=== PATIENT | female | born 1965 | race Caucasian/White ===

== ENCOUNTER 2023-10-08 12:58 | Outpatient (AMB) | payer OTHER, SELFPAY ==
--- NOTE | 2023-10-08 13:06 | MHC.PC.OV ---
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 Intake Note: pt is here for physical exam and to establish care Investment Recovery Technician Required: No Allergies No Known Allergies Allergy (Verified 10/08/23 13:12) Medication List - Last Reconciled 10/08/23 by Sammie Rabago MD atorvastatin 20 mg PO DAILY fluoxetine 20 mg PO DAILY ipratropium bromide intranasal levothyroxine (Synthroid) 75 mcg PO DAILY lorazepam 0.5 mg PO DAILY Tobacco use date assessed: 10/08/23 Dental Screening Dental Screen Date: 10/08/23 Did you have a dental visit in the last 12 months?: Yes Did you have a dental problem in the last 6 months where you did not have access to dental care?: No Was dental information given to patient?: Patient has dentist HPI HPI Comments History of Present Illness Details The patient is a 57 year old female with a past medical history of hypothyroid, hyperlipidemia, anxiety, prediabetes, osteopenia & depression presenting for follow up CV: on lipitor daily. Has had increased exertional dyspnea. Thinks its because of weight gain but unsure Depression/Anxiety: Following with therapist but likely return to primary care. On prn ativan and fluoxetine Hypothyroid: stable on levothyroxine. MSK: h/o bilateral wrist hand pain, CMC joints. Saw ortho. GI: Follows with [facility] Preventive Colonoscopy 01/21/2021 Mammo ard [facility] Surgical History (Updated 10/08/23 @ 13:15 by Maxmio Peters CMA) No pertinent past surgical history Family History (Updated 10/08/23 @ 13:16 by Maximo Peters CMA) Mother Dementia Father Oral cancer Social History (Updated 10/08/23 @ 13:16 by Maximo Peters CMA) Housing: House Alcohol intake: current Alcohol intake frequency: a few times a week Alcohol type: wine Patient Tobacco Use Status: Never used Tobacco e-Cigarette/Vaping Use: Never Used service: No Cognitive needs: No Hearing needs: No Vision needs: Yes Questionnaire PHQ-9 Over the last 2 weeks, how often have you been bothered by any of the following problems? 1. Little interest or pleasure in doing things: not at all 2. Feeling down, depressed, or hopeless: not at all 3. Trouble falling or staying asleep, or sleeping too much: not at all 4. Feeling tired or having little energy: not at all 5. Poor appetite or overeating: several days 6. Feeling bad about yourself - or that you are a failure or have let yourself or your family down: several days 7. Trouble concentrating on things, such as reading the newspaper or watching television: not at all 8. Moving or speaking so slowly that other people could have noticed. Or the opposite - being so fidgety or restless that you have been moving around a lot more than usual: not at all 9. Thoughts that you would be better off or of hurting yourself in some way: not at all Total score: 2 Depression Screening Interpretation: Negative (neg) Depression Screening Done: Yes [id number] - PHQ-9 Billing: Yes Source: Developed by Drs. Armando Lazaro, Lynette Matias, Get Burroughs and colleagues, with an educational miguel from [employer]. Thrive Questionnaire Date Thrive assessed: 10/08/23 I am a: Patient What is your living situation today?: I have a steady place to live Within the past 12 months, did the food you bought not last and you didn't have the money to get more?: Never true Within the past 12 months, did you worry whether your food would run out before you got money to buy more?: Never true Do you have trouble paying for medicines?: No Do you have trouble getting transportation to medical appointments?: No Do you have trouble paying your heating and electricity bill?: No Do you have trouble taking care of your child, family member or friend?: No Do you have trouble with day-to-day activities such as bathing, preparing meals, shopping, managing finances, etc.?: No Are you currently unemployed and looking for a job?: No Are you interested in more education?: No Please select the resources that you would like help with: None Currently or been in a relationship where the following occur: no concerns reported THRIVE Score: 0 AUDIT C Alcohol Use Questionnaire (AUDIT-C) 1. How often do you have a drink containing alcohol?: 2-3 times a week 2. How many drinks containing alcohol do you have on a typical day when you are drinking?: 1 or 2 3. How often do you have six or more drinks on one occasion?: Never Total Score: 3 Score Reviewed/Action Taken: Yes ROSE-7 AMB Questionnaire ROSE-7 Date ROSE - 7 assessed: 10/08/23 Feeling nervous, anxious, or on edge: 2 = More than half the days Not being able to stop or control worryin = More than half the days Worrying too much about different things: 2 = More than half the days Trouble relaxin = More than half the days Being so restless that it is hard to sit still: 2 = More than half the days Becoming easily annoyed or irritable: 2 = More than half the days Feeling afraid as if something awful might happen: 2 = More than half the days Total ROSE-7 score (0-4 normal; 5-9 mild; 10-14 moderate; 15-21 severe): 14 Source: Developed by Drs. Armando Lazaro, Lynette Matias, Get Burroughs and colleagues, with an educational miguel from [employer]. ROSE-7 Assessment Billing ROSE-7 Assessment Tool: ROSE-7 Assessment 64204 Review of Systems Const Details: ROS CONSTITUTIONAL: Denies weight loss, fever and chills. HEENT: Denies changes in vision and hearing. RESPIRATORY: see HPI CV: see HPI GI: Denies abdominal pain, nausea, vomiting and diarrhea. : Denies dysuria and urinary frequency. MSK: Denies new myalgia and joint pain. SKIN: Denies rash and pruritus. NEUROLOGICAL: Denies headache PSYCHIATRIC: Denies recent changes in mood. Physical exam (Primary Care) Vital Signs: Last Vital Signs Pulse 81 10/08/23 13:10 BP 122/72 10/08/23 13:10 Pulse Ox 99 10/08/23 13:10 PHYSICAL EXAM: GENERAL: Alert and oriented x 3. NAD EYES: EOMI. Anicteric. HENT: Moist mucous membranes. No scleral icterus. No cervical lymphadenopathy. LUNGS: Clear to auscultation bilaterally. CARDIOVASCULAR: Regular rate and rhythm. No murmur. No JVD. ABDOMEN: Soft, non-tender +bs EXTREMITIES: No edema. Non-tender. SKIN: No rashes or lesions. Warm. NEUROLOGIC: No focal neurological deficits. CN II-XII grossly intact PSYCHIATRIC: Cooperative. Appropriate mood and affect BMI result Body Mass Index 30.2 Tobacco/Smoking Status: Tobacco use Status Tobacco use date assessed 10/08/23 10/08/23 13:19 Patient Tobacco Use Status Never used Tobacco 10/08/23 13:19 e-Cigarette/Vaping Use Never Used 10/08/23 13:19 PHQ-9: PHQ-9 Score PHQ-9: Total score 2 10/08/23 13:19 Depression Screening Interpretation: Negative (neg) Thrive Assessment: Date of Thrive Assessment Date Thrive assessed 10/08/23 10/08/23 13:19 Currently or been in a relationship where the following occur: no concerns reported Assessment and Plan Assessment & Plan (1) Anxiety: Comment: stable on prozac and prn lorazepam. 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 Efforts toward weight loss Code(s): R73.02 - Impaired glucose tolerance (oral) (5) Shortness of Breath: Code(s): R06.02 - Shortness of breath (6) Physical exam: Code(s): Z00.00 - Encounter for general adult medical examination without abnormal findings Plan: Discussed preventive measures for patients age Orders: Orders Complete Blood Count Auto Diff Today E03.9 - Hypothyroidism, unspecified, E78.5 - Hyperlipidemia, unspecified, F41.9 - Anxiety disorder, unspecified, R06.02 - Shortness of breath, R73.02 - Impaired glucose tolerance (oral), Z13.0 - Encounter for screening for diseases of the blood and blood-forming organs and certain disorders involving the immune mechanism Hemoglobin A1c Today E03.9 - Hypothyroidism, unspecified, E78.5 - Hyperlipidemia, unspecified, F41.9 - Anxiety disorder, unspecified, R06.02 - Shortness of breath, R73.02 - Impaired glucose tolerance (oral), Z13.0 - Encounter for screening for diseases of the blood and blood-forming organs and certain disorders involving the immune mechanism ECG 12 lead EKG Today R06.02 - Shortness of breath Comprehensive Met. Panel Today E03.9 - Hypothyroidism, unspecified, E78.5 - Hyperlipidemia, unspecified, F41.9 - Anxiety disorder, unspecified, R06.02 - Shortness of breath, R73.02 - Impaired glucose tolerance (oral), Z13.0 - Encounter for screening for diseases of the blood and blood-forming organs and certain disorders involving the immune mechanism Lipid Panel Today E03.9 - Hypothyroidism, unspecified, E78.5 - Hyperlipidemia, unspecified, F41.9 - Anxiety disorder, unspecified, R06.02 - Shortness of breath, R73.02 - Impaired glucose tolerance (oral), Z13.0 - Encounter for screening for diseases of the blood and blood-forming organs and certain disorders involving the immune mechanism TSH reflex Free T4 Today E03.9 - Hypothyroidism, unspecified, E78.5 - Hyperlipidemia, unspecified, F41.9 - Anxiety disorder, unspecified, R06.02 - Shortness of breath, R73.02 - Impaired glucose tolerance (oral), Z13.0 - Encounter for screening for diseases of the blood and blood-forming organs and certain disorders involving the immune mechanism CA stress test Today R06.09 - Other forms of dyspnea Medications: New lorazepam 0.5 mg PO DAILY 30 days 30 tabs 0RF Coding Level of Care Code Est Pt Prev Care 40-64y(55236) Diagnoses Anxiety F41.9 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
[2023-10-08 13:10] VITALS: BP 122/72; PULSE 81; O2SAT 99; BMI 30.2
== END 2023-10-08 14:05 | disposition home or self-care (01) ==
PROVIDERS: PCP Internal Medicine; Visit Provider Internal Medicine
DX: Z00.00 Encounter for general adult medical examination without abnormal findings (principal); R06.02 Shortness of breath; F41.9 Anxiety disorder, unspecified; E03.8 Other specified hypothyroidism; E06.3 Autoimmune thyroiditis; E78.2 Mixed hyperlipidemia; R73.02 Impaired glucose tolerance (oral)
CPT/HCPCS: 93000; 99396

== ENCOUNTER 2023-10-10 10:03 | Outpatient (REF) | payer OTHER, SELFPAY ==
[2023-10-10 11:14] LABS: MANUAL DIFF FLAG NO
[2023-10-10 11:22] LABS: Basophils Percent Auto 0.2 % (0-2); Eosinophils Absolute Auto 0.1 X10*3/uL (0.0-0.4); Eosinophils Percent Auto 1.6 % (0-4); Hematocrit 38.5 % (37.0-47.0); Hemoglobin 12.9 g/dl (12.0-16.0); Imm Gran Abs Auto 0.01 X10*3/uL (0.00-0.03); Imm Gran Pct Auto 0.2 % (0.0-0.4); Lymphocytes Absolute Auto 2.1 X10*3/uL (1.2-4.9); Lymphocytes Percent Auto 40.4 % (20-40); Mean Corpuscular HGB Conc 33.5 g/dl (31.0-35.0); Mean Corpuscular Hemoglobin 31.7 pg (27.0-33.0); Mean Corpuscular Volume 94.6 fL (80.0-98.0); Mean Platelet Volume 8.9 fL (9.4-12.3); Monocytes Absolute Auto 0.4 X10*3/uL (0.1-1.2); Monocytes Percent Auto 7.7 % (2-11); Neutrophils Absolute Auto 2.5 x10*3/uL (2.0-8.3); Neutrophils Percent Auto 49.9 % (45-73); Platelet Count 300 X10*3/uL (160-400); Red Blood Count 4.07 X10*6/uL (4.20-5.50); White Blood Count 5.1 X10*3/uL (4.8-10.8)
[2023-10-10 11:28] LABS: Estimated Average Glucose 114 mg/dL; Hemoglobin A1c % 5.6 % (<6.0)
[2023-10-10 11:46] LABS: Alanine Aminotransferase 33 U/L (0-31); Albumin Level 4.5 g/dL (3.5-5.0); Alkaline Phosphatase 76 U/L (39-117); Anion Gap 13 (12-20); Aspartate Amino Transferase 23 U/L (5-31); Bilirubin Total 0.5 mg/dL (0.0-1.0); Blood Urea Nitrogen 19 mg/dL (9-16); Calcium 9.7 mg/dL (8.4-10.2); Carbon Dioxide 26 mmol/L (22-29); Chloride 105 mmol/L (96-108); Cholesterol 166 mg/dL (<200); Estimated Glomerular Filt Rate > 60; Glucose Random 101 mg/dL (60-115); HDL Cholesterol 44 mg/dL (>40); LDL Cholesterol Calculated 102 mg/dL (<100); Potassium 4.1 mmol/L (3.3-5.1); Sodium 140 mmol/L (135-145); Total Protein 7.6 g/dL (6.5-8.0); Triglycerides 104 mg/dL (<150)
[2023-10-10 12:04] LABS: TSH reflex Free T4 1.23 uIU/mL (0.32-4.0)
== END 2023-10-10 10:04 | disposition home or self-care (01) ==
LOC: HO.WFDLDS 10:03
PROVIDERS: Visit Provider Internal Medicine
DX: E78.5 Hyperlipidemia, unspecified (principal); E03.9 Hypothyroidism, unspecified; F41.9 Anxiety disorder, unspecified; Z13.0 Encounter for screening for diseases of the blood and blood-forming organs and certain disorders involving the immune mechanism; R73.02 Impaired glucose tolerance (oral); R06.02 Shortness of breath
CPT/HCPCS: 36415; 80053; 80061; 83036; 84443; 85025

== ENCOUNTER → 2023-10-16 08:42 | Outpatient (REF) | payer OTHER, SELFPAY ==
--- NOTE | 2023-10-16 08:51 | CA_ITS ---
Acquisition Time: 2023-10-16 09:13:30 Total Exercise Time: 00:06:12 Test Indications: EXERTIONAL DYSPNEA Medications: Protocol: KATINA Max HR: 137 BPM 85% of Pred: 161 BPM Max BP: 142/072 mmHG Max Work Load: 7.2 METS Exercise stress test exercise 6 min 12 sec of Katina protocol achieving 86% with mild to moderate SOB, no chest discomfort, withgout arrhythmais, with normotensive response to exercise, without EKG changes. Breathing returned to normal to baseline. Lightheadedness improved. Test reviewed with Dr. Parks. Referred By: Sammie Rabago Overread By: Monie Danielle
== END ==
LOC: HO.CARD 08:42
PROVIDERS: PCP Internal Medicine; Visit Provider Internal Medicine
DX: R06.09 Other forms of dyspnea (principal)
CPT/HCPCS: 93017

== ENCOUNTER → 2023-10-16 08:51 | Outpatient (BNV) | payer OTHER, SELFPAY | PROVIDERS: PCP Internal Medicine; Visit Provider Nurse Practitioner | DX: R06.02 Shortness of breath (principal) | CPT/HCPCS: 93016; 93018 ==

== ENCOUNTER 2024-03-19 08:55 | Outpatient (REF) | payer OTHER, SELFPAY ==
[2024-03-19 11:31] LABS: MANUAL DIFF FLAG NO
[2024-03-19 11:34] LABS: Basophils Percent Auto 0.5 % (0-2); Eosinophils Absolute Auto 0.1 X10*3/uL (0.0-0.4); Eosinophils Percent Auto 2.5 % (0-4); Hematocrit 38.5 % (37.0-47.0); Hemoglobin 12.9 g/dl (12.0-16.0); Imm Gran Abs Auto 0.01 X10*3/uL (0.00-0.03); Imm Gran Pct Auto 0.2 % (0.0-0.4); Lymphocytes Absolute Auto 2.3 X10*3/uL (1.2-4.9); Lymphocytes Percent Auto 41.7 % (20-40); Mean Corpuscular HGB Conc 33.5 g/dl (31.0-35.0); Mean Corpuscular Hemoglobin 31.5 pg (27.0-33.0); Mean Corpuscular Volume 94.1 fL (80.0-98.0); Mean Platelet Volume 8.6 fL (9.4-12.3); Monocytes Absolute Auto 0.5 X10*3/uL (0.1-1.2); Monocytes Percent Auto 8.9 % (2-11); Neutrophils Absolute Auto 2.6 x10*3/uL (2.0-8.3); Neutrophils Percent Auto 46.2 % (45-73); Platelet Count 347 X10*3/uL (160-400); Red Blood Count 4.09 X10*6/uL (4.20-5.50); Red Cell Distribution Width 12.3 % (11.0-16.0); White Blood Count 5.6 X10*3/uL (4.8-10.8)
[2024-03-19 12:19] LABS: Estimated Average Glucose 117 mg/dL; Hemoglobin A1C 130.1138 umol/L; Hemoglobin A1c % 5.7 % (<6.0); Total Hemoglobin (HGBA1C) 3401.4343 umol/L
[2024-03-19 13:00] LABS: Alanine Aminotransferase 46 U/L (0-31); Albumin Level 4.5 g/dL (3.5-5.0); Alkaline Phosphatase 97 U/L (39-117); Anion Gap 17 (12-20); Aspartate Amino Transferase 35 U/L (5-31); Bilirubin Total 0.8 mg/dL (0.0-1.0); Blood Urea Nitrogen 19 mg/dL (9-16); Calcium 9.6 mg/dL (8.4-10.2); Carbon Dioxide 23 mmol/L (22-29); Chloride 103 mmol/L (96-108); Cholesterol 179 mg/dL (<200); Estimated Glomerular Filt Rate > 60; Glucose Random 101 mg/dL (60-115); HDL Cholesterol 49 mg/dL (>40); LDL Cholesterol Calculated 101 mg/dL (<100); Potassium 4.2 mmol/L (3.3-5.1); Sodium 139 mmol/L (135-145); Total Protein 7.7 g/dL (6.5-8.0); Triglycerides 146 mg/dL (<150)
[2024-03-19 13:26] LABS: TSH reflex Free T4 4.96 uIU/mL (0.32-4.0)
[2024-03-19 14:25] LABS: Free T4 (Free Thyroxine) 1.06 ng/dL (0.71-1.85)
== END 2024-03-19 08:56 | disposition home or self-care (01) ==
LOC: HO.WFDLDS 08:55
PROVIDERS: Visit Provider Internal Medicine
DX: R73.02 Impaired glucose tolerance (oral) (principal); E78.2 Mixed hyperlipidemia; E03.8 Other specified hypothyroidism; E06.3 Autoimmune thyroiditis; F32.A Depression, unspecified
CPT/HCPCS: 36415; 80053; 80061; 83036; 84439; 84443; 85025

== ENCOUNTER 2024-03-24 08:52 | Outpatient (AMB) | payer OTHER, SELFPAY ==
--- NOTE | 2024-03-24 09:01 | MHC.PC.OV ---
Vital Signs 03/24/24 09:03 Height 5 ft 3.5 in Weight 170 lb BMI 29.6 BP 132/70 Blood Pressure Location Rt brachial Position Sitting Respiration 13 Pulse 77 Pulse Source Pulse Oximeter Pulse Oximetry (%) 98 Oxygen Delivery Method Room Air Intake Visit Reasons: follow up anxiety Automatic Bow Maker Machine Tender Required: No Automatic Bow Maker Machine Tender Name: follow up on anxiety Allergies No Known Allergies Allergy (Verified 03/24/24 09:03) Tobacco use date assessed: 10/08/23 Dental Screening Dental Screen Date: 10/08/23 HPI HPI Comments History of Present Illness Details The patient is a 57 year old female with a past medical history of hypothyroid, hyperlipidemia, anxiety, prediabetes, osteopenia & depression presenting for follow up CV: on lipitor daily. Denies chest pain, shortness of breath Depression/Anxiety: On prn ativan and fluoxetine-40mg daily Hypothyroid: stable on levothyroxine. Recent TSH elevated. She has been tired on her her 75mcg dose MSK: h/o bilateral wrist hand pain, CMC joints. Saw ortho. Increased low back pain. Macromastia. Getting recurrent rash under the breast. She has been doing PT stretches at home for the low back GI: Follows with [facility] Preventive Colonoscopy 01/21/2021 Mammo utd ROS CONSTITUTIONAL: Denies weight loss, fever and chills. HEENT: Denies changes in vision and hearing. RESPIRATORY: Denies SOB and cough. CV: Denies palpitations and CP GI: Denies abdominal pain, nausea, vomiting and diarrhea. : Denies dysuria and urinary frequency. MSK: Denies new myalgia and joint pain. SKIN:breast rash NEUROLOGICAL: Denies headache PSYCHIATRIC: Denies recent changes in mood. PHYSICAL EXAM: GENERAL: Alert and oriented x 3. NAD EYES: EOMI. Anicteric. HENT: Moist mucous membranes. No scleral icterus. No cervical lymphadenopathy. LUNGS: Clear to auscultation bilaterally. CARDIOVASCULAR: Regular rate and rhythm. No murmur. No JVD. ABDOMEN: Soft, non-tender +bs EXTREMITIES: No edema. Non-tender. SKIN: tinea cruris NEUROLOGIC: No focal neurological deficits. CN II-XII grossly intact PSYCHIATRIC: Cooperative. Appropriate mood and affect [facility] Surgical History No pertinent past surgical history Family History Mother Dementia Father Oral cancer Social History Housing: House Alcohol intake: current Alcohol intake frequency: a few times a week Alcohol type: wine Patient Tobacco Use Status: Never used Tobacco e-Cigarette/Vaping Use: Never Used service: No Cognitive needs: No Hearing needs: No Vision needs: Yes Questionnaire PHQ-9 Over the last 2 weeks, how often have you been bothered by any of the following problems? 1. Little interest or pleasure in doing things: not at all 2. Feeling down, depressed, or hopeless: not at all 3. Trouble falling or staying asleep, or sleeping too much: not at all 4. Feeling tired or having little energy: not at all 5. Poor appetite or overeating: not at all 6. Feeling bad about yourself - or that you are a failure or have let yourself or your family down: not at all 7. Trouble concentrating on things, such as reading the newspaper or watching television: not at all 8. Moving or speaking so slowly that other people could have noticed. Or the opposite - being so fidgety or restless that you have been moving around a lot more than usual: not at all 9. Thoughts that you would be better off or of hurting yourself in some way: not at all Total score: 0 41568 - PHQ-9 Billing: Yes Source: Developed by Drs. Armando Lazaro, Lynette Matias, Get Burroughs and colleagues, with an educational miguel from [employer]. Thrive Questionnaire Date Thrive assessed: 03/24/24 I am a: Patient What is your living situation today?: I have a steady place to live Within the past 12 months, did the food you bought not last and you didn't have the money to get more?: Never true Within the past 12 months, did you worry whether your food would run out before you got money to buy more?: Never true Do you have trouble paying for medicines?: No Do you have trouble getting transportation to medical appointments?: No Do you have trouble paying your heating and electricity bill?: No Do you have trouble taking care of your child, family member or friend?: No Do you have trouble with day-to-day activities such as bathing, preparing meals, shopping, managing finances, etc.?: No Are you currently unemployed and looking for a job?: I choose not to answer this question Are you interested in more education?: No Please select the resources that you would like help with: None Currently or been in a relationship where the following occur: No concerns reported THRIVE Score: 0 AUDIT C Alcohol Use Questionnaire (AUDIT-C) 1. How often do you have a drink containing alcohol?: 2-3 times a week 2. How many drinks containing alcohol do you have on a typical day when you are drinking?: 1 or 2 3. How often do you have six or more drinks on one occasion?: Less than monthly Total Score: 4 ROSE-7 AMB Questionnaire ROSE-7 Date ROSE - 7 assessed: 03/24/24 Feeling nervous, anxious, or on edge: 1 = Several days Not being able to stop or control worryin = Several days Worrying too much about different things: 1 = Several days Trouble relaxin = Several days Being so restless that it is hard to sit still: 0 = Not at all Becoming easily annoyed or irritable: 0 = Not at all Feeling afraid as if something awful might happen: 0 = Not at all Total ROSE-7 score (0-4 normal; 5-9 mild; 10-14 moderate; 15-21 severe): 4 Source: Developed by Drs. Armando Lazaro, Lynette Matias, Get Burroughs and colleagues, with an educational miguel from [employer]. ROSE-7 Assessment Billing ROSE-7 Assessment Tool: ROSE-7 Assessment 03980 Physical exam (Primary Care) Vital Signs: Last Vital Signs Pulse 77 03/24/24 09:03 Resp 13 03/24/24 09:03 BP 132/70 03/24/24 09:03 Pulse Ox 98 03/24/24 09:03 Oxygen Delivery Method Room Air 03/24/24 09:03 BMI result Body Mass Index 29.6 Tobacco/Smoking Status: Tobacco use Status Tobacco use date assessed 10/08/23 03/24/24 09:05 Patient Tobacco Use Status Never used Tobacco 03/24/24 09:05 e-Cigarette/Vaping Use Never Used 03/24/24 09:05 PHQ-9: PHQ-9 Score PHQ-9: Total score 0 03/24/24 09:05 Thrive Assessment: Date of Thrive Assessment Date Thrive assessed 03/24/24 03/24/24 09:05 Currently or been in a relationship where the following occur: No concerns reported Coding Level of Care Code Est Pt Level 4 (21271) Complex EM visit Add On G2211 Diagnoses Anxiety F41.9 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 Sent refills. 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 Increase levothyroxine to 88mcg daily (3) Rash: Code(s): R21 - Rash and other nonspecific skin eruption Category: Medical Plan: Lotrisone sent She may be eligibile for breast reduction given back pain and recurrent rash. BMI is appropriate for referral Orders: Orders Varicella IgG Antibody Today Z01.84 - Encounter for antibody response examination Medications: New clotrimazole-betamethasone 1-0.05 % 1 appl topical BID 4 weeks 45 grams 3RF levothyroxine 88 mcg PO DAILY 90 tabs 3RF fluoxetine 40 mg PO DAILY 90 caps 3RF Changed From lorazepam 0.5 mg PO DAILY 30 days 30 tabs 0RF To lorazepam 0.5 mg PO DAILY 90 days 90 tabs 3RF Discontinued levothyroxine (Synthroid) Discontinued Reason: Doctor's Order 75 mcg PO DAILY 90 tabs 3RF
[2024-03-24 09:03] VITALS: BP 132/70; PULSE 77; RESP 13; O2SAT 98; BMI 29.6
== END 2024-03-24 09:28 | disposition home or self-care (01) ==
LOC: HO.HMCFM 08:53
PROVIDERS: PCP Internal Medicine; Visit Provider Internal Medicine
DX: F41.9 Anxiety disorder, unspecified (principal); E03.8 Other specified hypothyroidism; E06.3 Autoimmune thyroiditis; R21 Rash and other nonspecific skin eruption

== ENCOUNTER → 2024-03-24 08:52 | Outpatient (BNVA) | payer OTHER, SELFPAY | PROVIDERS: PCP Internal Medicine; Visit Provider Internal Medicine | DX: F41.9 Anxiety disorder, unspecified (principal); E03.8 Other specified hypothyroidism; E06.3 Autoimmune thyroiditis; R21 Rash and other nonspecific skin eruption; Z79.899 Other long term (current) drug therapy | CPT/HCPCS: 96127 ==

== ENCOUNTER 2024-03-24 09:31 | Outpatient (REF) | payer OTHER, SELFPAY | END 2024-03-24 09:32 | disposition home or self-care (01) | LOC: HO.WFDLDS 09:31 | PROVIDERS: Visit Provider Internal Medicine | DX: Z01.84 Encounter for antibody response examination (principal) | CPT/HCPCS: 36415; 86787 ==

== ENCOUNTER 2024-04-15 11:23 | Outpatient (AMB) | payer OTHER, SELFPAY ==
--- NOTE | 2024-04-15 11:39 | MHC.PC.OV ---
Vital Signs 04/15/24 11:40 Height 5 ft 3 in Weight 172 lb 2 oz BMI 30.5 BP 128/80 Blood Pressure Location Rt brachial Position Sitting Pulse 70 Pulse Source Pulse Oximeter Pulse Oximetry (%) 99 Oxygen Delivery Method Room Air Intake Visit Reasons: cpe Intake Note: Physical Allergies No Known Allergies Allergy (Verified 04/15/24 11:39) Tobacco use date assessed: 10/08/23 Dental Screening Dental Screen Date: 10/08/23 HPI HPI Comments History of Present Illness Details The patient is a 58 year old female with a past medical history of hypothyroid, hyperlipidemia, anxiety, prediabetes, osteopenia & depression presenting for CPE CV: on lipitor daily. Denies chest pain, shortness of breath Depression/Anxiety: On prn ativan and fluoxetine-40mg daily Hypothyroid: stable on levothyroxine. Recent TSH elevated. Increased 3 weeks ago to 88mcg MSK: h/o bilateral wrist hand pain, CMC joints. Saw ortho. Increased low back pain. Macromastia. Getting recurrent rash under the breast despite topical therapy. 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 NAD EYES: EOMI. Anicteric. HENT: Moist mucous membranes. No scleral icterus. No cervical lymphadenopathy. LUNGS: Clear to auscultation bilaterally. CARDIOVASCULAR: Regular rate and rhythm. No murmur. No JVD. ABDOMEN: Soft, non-tender +bs EXTREMITIES: No edema. Non-tender. SKIN: Erythema with bumps in between and under the breasts NEUROLOGIC: No focal neurological deficits. CN II-XII grossly intact PSYCHIATRIC: Cooperative. Appropriate mood and affect [facility] Surgical History No pertinent past surgical history Family History Mother Dementia Father Oral cancer Social History Housing: House Alcohol intake: current Alcohol intake frequency: a few times a week Alcohol type: wine Patient Tobacco Use Status: Never used Tobacco e-Cigarette/Vaping Use: Never Used service: No Cognitive needs: No Hearing needs: No Vision needs: Yes Questionnaire Thrive Questionnaire Date Thrive assessed: 03/22/24 I am a: Patient What is your living situation today?: I have a steady place to live Within the past 12 months, did the food you bought not last and you didn't have the money to get more?: Never true Within the past 12 months, did you worry whether your food would run out before you got money to buy more?: Never true Do you have trouble paying for medicines?: No Do you have trouble getting transportation to medical appointments?: No Do you have trouble paying your heating and electricity bill?: No Do you have trouble taking care of your child, family member or friend?: No Do you have trouble with day-to-day activities such as bathing, preparing meals, shopping, managing finances, etc.?: No Are you currently unemployed and looking for a job?: I choose not to answer this question Are you interested in more education?: No Please select the resources that you would like help with: None Currently or been in a relationship where the following occur: No concerns reported THRIVE Score: 0 ROSE-7 AMB Questionnaire ROSE-7 Date ROSE - 7 assessed: 03/24/24 Source: Developed by Drs. Armando Lazaro, Lynette Matias, Get Burroughs and colleagues, with an educational miguel from [employer]. Physical exam (Primary Care) Vital Signs: Last Vital Signs Pulse 70 04/15/24 11:40 BP 128/80 04/15/24 11:40 Pulse Ox 99 04/15/24 11:40 Oxygen Delivery Method Room Air 04/15/24 11:40 BMI result Body Mass Index 30.5 Tobacco/Smoking Status: Tobacco use Status Tobacco use date assessed 10/08/23 04/15/24 11:43 Patient Tobacco Use Status Never used Tobacco 04/15/24 11:44 e-Cigarette/Vaping Use Never Used 04/15/24 11:44 Thrive Assessment: Date of Thrive Assessment Date Thrive assessed 03/22/24 04/15/24 11:43 Currently or been in a relationship where the following occur: No concerns reported Coding Level of Care Code Est Pt Prev Care 40-64y(43336) Diagnoses Physical exam Z00.00 Macromastia N62 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; E06.3 Hypothyroidism type: due to Magui's thyroiditis Recurrent major depressive disorder, in partial remission F33.41 Active/Remission status: in partial remission Depression Type: major depressive disorder Major depression recurrence: recurrent Assessment & Plan Assessment & Plan (1) Physical exam: Code(s): Z00.00 - Encounter for general adult medical examination without abnormal findings Category: Medical Plan: Preventive measures for age discussed UTD She will get shingles vaccination at the pharmacy (2) Macromastia: Code(s): N62 - Hypertrophy of breast Category: Medical Plan: recurrent rash with refractory back pain. referral to plastic surgery sent (3) Hypothyroid: Code(s): E03.9 - Hypothyroidism, unspecified Category: Medical Qualifiers: Hypothyroidism type: due to Magui's thyroiditis Qualified Code(s): E03.8 - Other specified hypothyroidism; E06.3 - Autoimmune thyroiditis Plan: Recheck TSH at 3 month demetrio on change of dosage (4) Depression: Code(s): F32.A - Depression, unspecified Category: Medical Qualifiers: Active/Remission status: in partial remission Depression Type: major depressive disorder Major depression recurrence: recurrent Qualified Code(s): F33.41 - Major depressive disorder, recurrent, in partial remission Plan: continue current medications Orders: Orders TSH reflex Free T4 Today E03.8 - Other specified hypothyroidism, E06.3 - Autoimmune thyroiditis, R53.83 - Other fatigue Complete Blood Count Auto Diff Today E03.8 - Other specified hypothyroidism, E06.3 - Autoimmune thyroiditis, R53.83 - Other fatigue Referrals Plastic Surgery Referral M54.50 - Low back pain, unspecified, N62 - Hypertrophy of breast, R21 - Rash and other nonspecific skin eruption Medications: New nystatin 1 appl topical DAILY 60 grams 3RF doxycycline hyclate 100 mg PO BID 20 tabs 0RF 10 days fluticasone propionate 50 mcg/actuation (Flonase Allergy Relief) administer into each nostril 2 sprays intranasal DAILY 16 grams 3RF hyoscyamine sulfate 0.125 mg PO BID-QID PRN 30 tabs 3RF dyspepsia
[2024-04-15 11:40] VITALS: BP 128/80; PULSE 70; O2SAT 99; BMI 30.5
== END 2024-04-15 12:17 | disposition home or self-care (01) ==
PROVIDERS: PCP Internal Medicine; Visit Provider Internal Medicine
DX: Z00.00 Encounter for general adult medical examination without abnormal findings (principal); F33.41 Major depressive disorder, recurrent, in partial remission; N62 Hypertrophy of breast; E03.8 Other specified hypothyroidism; E06.3 Autoimmune thyroiditis

== ENCOUNTER 2024-06-24 13:50 | Outpatient (REF) | payer OTHER, SELFPAY ==
--- OUTSIDE RECORDS SUMMARY | 2024-06-24 14:00 | XMS_ITS | Clinical Summary ---
Author Organization [address] Address [address] [place] [phone] Phone Care Team Providers Care Director Recreation Center Name Role Phone Nannette Aguillon MD Primary Care Provider [phone] Encounters Date Type Department Care Team Description 05/08/2024 Telephone Obstetrics and Gynecology [address] [id number] Alex Crockett, CHE Results from Last 3 Months Surgical History Surgery Date Site/Laterality Comments OTHER SURGICAL HISTORY age 19 PROCEDURE: [place] CAUTERY CERVIX CRYOCAUTERY INITIAL/REPEAT; COMMENT: Mild Dysplasia OTHER SURGICAL HISTORY PROCEDURE: ENDOMETRIAL BIOPSY/PIPELLE [facility] PATHOLOGY COLPOSCOPY 12/04/1988 PROCEDURE: [place] COLPOSCOPY ENTIRE VAGINA W/VAGINA/CERVIX BX OTHER SURGICAL HISTORY 02/2015 Right PROCEDURE: [place] EXC PRTD ISAK/PRTD GLND LAT LOBE W/O NRV DSJ; COMMENT: Benign HAND SURGERY 08/2015 Left PROCEDURE: HISTORICAL HAND SURGERY; COMMENT: Trigger finger release Medical History Medical History Date Comments Allergic rhinitis, cause unspecified 02/18/2007 DX:Allergic rhinitis, cause unspecified Depressive disorder, not els ewhere classified 02/18/2007 DX:Depressive disorder, not elsewhere classified Hyperlipidemia DX:Hyperlipidemi a; COMMENT: HDL 58, LDL 155 02/23 Historical Medical DX DX:Hot fla sh; COMMENT: occas Dizziness and giddiness DX:Dizzi ness and giddiness Breast lump DX:Breast lump; COMMENT: right Vaginal yeast infection DX:Vagin al yeast infection; COMMENT: occa gets a wk before menses every other month Mood swings DX:Mood swings Condyloma DX:Condyloma Chronic cervicitis DX:Chronic ce rvicitis Anxiety state, unspecified 2/27/09 DX:An xiety state, unspecified Abnormal glandular Papanicol aou smear of cervix 12/10/2008 DX:Abnormal glandular Papani colaou smear of cervix Other specified personal his tory presenting hazards to health(V15.89) DX:Other specifie d personal history presenting hazards to health(V15.89) Family history of oropharyngeal cancer 10/27/2014 DX:Family history of oropharyngeal cancer; COMMENT: Father primary tongue Anxiety 02/15/2016 DX:Anxiety Family History Medical History Relation Name Comments Hypertension Father Lung cancer Father Other cancer Father brain Hypertension Mother Breast cancer Neg Hx Relation Name Status Comments Father (Age 68) cancer ton stephanie, lung Maternal Grandfather Maternal Grandmother Mother Alive memory problems ; TIA age 75, osteoporosis; 81 in 2017 Paternal Grandfather Paternal Grandmother diabete s Social History Tobacco Use Types Packs/Day Years Used Date Smoking Tobacco: Former Cigarettes Q uit: 02/22/2013 Smokeless Tobacco: Former Alcohol Use Standard Drinks/Week Comments Yes 7 (1 standard drink = 0.6 oz pur e alcohol) Sex and Gender Information Value Date Recorded Sex Assigned at Not on file Gender Identity Not on file Sexual Orientation Not on file Obstetrics History Last Filed Vital Signs Vital Sign Reading Time Taken Comments Blood Pressure 138/80 12/06/2023 7:59 AM EDT Pulse 71 12/06/2023 7:59 AM EDT Temperature - - Respiratory Rate - - Oxygen Saturation - - Inhaled Oxygen Concentration - - Weight 77.7 kg (171 lb 3.2 oz) 12/06/2023 7:59 A M EDT Height 162.6 cm (5' 4 ) 12/06/2023 7:59 AM EDT Body Mass Index 29.39 12/06/2023 7:59 AM EDT Plan of Treatment Health Maintenance Due Date Last Done Comments Cervical Cancer Screening: HPV 11/26/1984 Zoster Vaccines (1 of 2) 11/26/2013 Cholesterol Screening (Lipid Panel) 04/29/2022 Colorectal Cancer Screening: Colonoscopy 04/29/2022 Depression Screening 04/29/2022 HIV Screening 04/29/2022 Hepatitis C Screening 04/29/2022 Social Influencers of Health Screening 04/29/2022 DTaP,Tdap,and Td Vaccines (3 - Td or Tdap) 08/06/2022 08/06/2012, 03/21/2011 COVID-19 Vaccine ( season) 2024 09/17/2020 Influenza Vaccine (#1) 2024 03/17/2020 Breast Cancer Screening 05/23/2024 05/23/19 23, 05/16/2021, 05/11/2020, Additional history exists RSV Immunization Patients 60+ Years Old (1 - 1-dose 75+ series) 11/26/2038 HIB Vaccines Aged Out No longer eligi ble based on patient's age to complete this topic HPV Vaccines Aged Out No longer eligi ble based on patient's age to complete this topic Hepatitis A Vaccines Aged Out No long er eligible based on patient's age to complete this topic Hepatitis B Vaccines Aged Out No long er eligible based on patient's age to complete this topic IPV Vaccines Aged Out No longer eligi ble based on patient's age to complete this topic MMR Vaccines Aged Out No longer eligi ble based on patient's age to complete this topic Meningococcal ACWY Vaccine Aged Out N o longer eligible based on patient's age to complete this topic Pneumococcal Vaccine: Pediatrics (0 to 5 Years) and At-Risk Patients (6 to 64 Years) Aged Out No longer eligible based on patient's age to complete this topic RSV Immunization Patients Under 20 months Aged Out No longer eligible based on patient's age to complete this topic Varicella Vaccines Aged Out No longer eligible based on patient's age to complete this topic Procedures Procedure Name Priority Date/Time Associated Diagnosis Comments BD BONE DENSITY DXA AXIAL SKELETON Routine 05/19/2024 2:49 PM EST SCREENING MAMMOGRAPHY BI 2-VIEW BREAST INC CAD Routine 05/23/2022 9:29 AM EST Encounter for screening mammogram for malignant neoplasm of breast from Last 3 Months or Most Recently Relevant to Health Maintenance Results * BD Bone Density DXA Axial Skeleton (05/19/2024 2:49 PM EST) Anatomical Region Laterality Modality Wrist, Hip, L-spine Bone Densito metry Historical Provider MD YAO DXA PROCEDURE S * SCREENING MAMMOGRAPHY BI 2-VIEW BREAST INC CAD (05/23/2022 9:29 AM EST) Anatomical Region Laterality Modality Radiographic Irma ging 05/16/2021 2:53 PM EST Narrative 05/23/2022 7:40 PM EST This is a summary report. The complete report is available in the patient's medical record. If you cannot access the medical record, please contact the sending organization for a detailed fax or copy. Exam: Screening mammogram Findings: Digital bilateral full-field screening mammography is performed with tomosynthesis and interpreted with the aid of computer-aided detection. ??Comparison is made with 05/16/2021 and as far back as 05/25/2017. Breast parenchyma is composed of scattered fibroglandular densities. ??No new suspicious mass, architectural distortion, or suspicious calcifications. Impression: No mammographic evidence of malignancy. BI-RADS 1 - negative Procedure Note Chritsine Maurice MD - 06/25/2023 This is a summary report. The complete report is available in thepatient's medical record. If you cannot access the medical record, pleasecontact the sending organization for a detailed fax or copy. Exam: Screening mammogram Findings: Digital bilateral full-field screening mammography is performedwith tomosynthesis and interpreted with the aid of computer-aideddetection. Comparison is made with 05/16/2021 and as far back 05/25/2017. Breast parenchyma is composed of scattered fibroglandular densities. Nonew suspicious mass, architectural distortion, or suspiciouscalcifications. Impression: No mammographic evidence of malignancy. BI-RADS 1 - negative Sammie Rabago MD IMG XR PROCEDURES from Last 3 Months or Most Recently Relevant to Health Maintenance Care Teams Director Recreation Center Relationship Specialty Start Date End Date Nannette Aguillon MD PCP - General Internal Medicine 02/18/07
[2024-06-24 17:49] LABS: MANUAL DIFF FLAG NO
[2024-06-24 18:08] LABS: Basophils Percent Auto 0.5 % (0-2); Eosinophils Absolute Auto 0.2 X10*3/uL (0.0-0.4); Eosinophils Percent Auto 2.3 % (0-4); Hematocrit 40.1 % (37.0-47.0); Hemoglobin 13.4 g/dl (12.0-16.0); Imm Gran Abs Auto 0.01 X10*3/uL (0.00-0.03); Imm Gran Pct Auto 0.2 % (0.0-0.4); Lymphocytes Absolute Auto 2.2 X10*3/uL (1.2-4.9); Lymphocytes Percent Auto 34.4 % (20-40); Mean Corpuscular HGB Conc 33.4 g/dl (31.0-35.0); Mean Corpuscular Hemoglobin 31.2 pg (27.0-33.0); Mean Corpuscular Volume 93.3 fL (80.0-98.0); Mean Platelet Volume 8.9 fL (9.4-12.3); Monocytes Absolute Auto 0.5 X10*3/uL (0.1-1.2); Monocytes Percent Auto 7.6 % (2-11); Neutrophils Absolute Auto 3.6 x10*3/uL (2.0-8.3); Platelet Count 337 X10*3/uL (160-400); Red Cell Distribution Width 11.8 % (11.0-16.0); White Blood Count 6.5 X10*3/uL (4.8-10.8)
[2024-06-24 18:42] LABS: TSH reflex Free T4 2.43 uIU/mL (0.32-4.0)
== END 2024-06-24 13:51 | disposition home or self-care (01) ==
LOC: HO.WFDLDS 13:50
PROVIDERS: Visit Provider Internal Medicine
DX: E03.8 Other specified hypothyroidism (principal); E06.3 Autoimmune thyroiditis; R53.83 Other fatigue
CPT/HCPCS: 36415; 84443; 85025

== ENCOUNTER 2024-12-23 09:27 | Outpatient (AMB) | payer OTHER, SELFPAY ==
[2024-12-23 09:31] VITALS: BP 138/82; BMI 30.3
--- NOTE | 2024-12-23 09:31 | MHC.OFFVIS ---
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 Required: No Applied Researcher: Applied Researcher Present Allergies No Known Allergies Allergy (Verified 12/23/24 09:34) Medication List - Last Reconciled 12/23/24 by Becky Xavier LPN atorvastatin 20 mg PO DAILY clotrimazole-betamethasone 1-0.05 % 1 appl topical BID 4 weeks fluocinolone acetonide oil 0.01% 5 drps otic (ears) BID 14 days fluoxetine 40 mg PO DAILY levothyroxine 88 mcg PO DAILY lorazepam 0.5 mg PO DAILY 90 days Post menopausal: Yes Do you need a note to return to daycare/school/sports/work: No HPI Comments Details: Patient is a postmenopausal woman presenting for 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 Had a work up at [facility] in the past. Admits to external dryness of vulvar skin w/itching. No odors or discharge. Currently not sexually active in years, partner has ED. STI testing offered; she declines. Attempting to eat a healthy diet with calcium and vitamin D and stays active with exercise. Last pap smear; unknown, negative. Last mammogram; 05/2024. Colonoscopy is UTD. Denies any family history of breast, ovarian or colon cancer. [facility] Surgical History No pertinent past surgical history Family History Mother Dementia Father Oral cancer Social History Housing: House Alcohol intake: current Alcohol intake frequency: a few times a week Alcohol type: wine Patient Tobacco Use Status: Never used Tobacco e-Cigarette/Vaping Use: Never Used service: No Cognitive needs: No Hearing needs: No Vision needs: Yes Female Reproductive History Menstrual control method: none Age of menopause: 52 Total pregnancies: 0 Date of last pap smear: 12/26/22 History of abnormal pap smear: No History of STI: Yes (HSV) Date of Mammogram: 05/23/24 ([facility]) History of abnormal mammogram: Yes (had u/s which was normal) Review of Systems Const All systems reviewed & are unremarkable except as noted in HPI and below Reports as per HPI Eyes Reports no additional complaints ENT Reports no additional complaints Card Reports no additional complaints Resp Reports no additional complaints GI Reports as per HPI and Reports no additional complaints Reports as per HPI Musc Reports no additional complaints Skin/Breast Reports as per HPI Neuro Reports no additional complaints Psych Reports no additional complaints Endo Reports no additional complaints Evert/Lymph Reports no additional complaints Aller/Immun Reports no additional complaints Physical Exam Vital Signs: Last Vital Signs BP 138/82 12/23/24 09:31 BMI result Body Mass Index 30.3 Const General: cooperative, healthy appearing, no acute distress, well developed and alert Orientation/consciousness: patient oriented x3 HEENT Head: Yes normal to inspection Eyes General: appearance normal, both eyes and all related structures Neck Neck: Yes normal visual inspection Thyroid: Thyroid normal Chest Chest palpation & inspection: normal inspection of the chest and other (no puckering, dimpling, peau de orange, retraction, discharge, masses) Breast/axilla inspection: normal inspection of the breasts Breast/axilla palpation: normal palpation of the breasts Resp Effort & Inspection: normal respiratory effort GI Inspection: Yes normal to inspection Palpation (GI): Soft to palpation Rectal Exam - Female: deferred General: Yes bladder normal to palpation External Female Exam: normal external appearance and normal appearance of the urethra Speculum Exam - Vagina: normal appearance of the vagina, normal palpation, normal vaginal discharge and vagina atrophic Speculum Exam - Cervix: normal appearance of the cervix, normal palpation and Other cervical findings present (Atrophic changes bled slightly with Pap) Bimanual exam- vagina & uterus: normal bimanual exam, normal palpation, uterine size normal, bladder normal to palpation, normal palpation and non-tender Bimanual Exam- Adnexa, other: no masses Skin General skin exam: no rashes or lesions noted Rashes: no rashes Neuro General: patient oriented x3 Cognition (Neuro): normal cognition Extrem General: Yes normal to inspection Psych Attitude: cooperative Thought process: Normal thought process present Assessment & Plan Assessment & Plan (1) Encounter for well woman exam with routine gynecological exam: Code(s): Z01.419 - Encounter for gynecological examination (general) (routine) without abnormal findings Category: Medical Plan: Discussed: Current recommendations for pap smears per ASCCP guidelines. Breast awareness, periodic self breast exams and yearly mammogram. Report any breast changes Orders placed. Sign release records from [facility]. Vaginal moisturizers and lubricants, skin care products and vulvar care. BV panel obtained. Follow up p.r.n. Maintain a healthy lifestyle, well balanced diet including Calcium 1,200 mg and Vitamin D 600 IU daily, and routine exercise. Contact the office with any postmenopausal bleeding. Patient verbalizes understanding and agrees to the plan of care. She was given opportunity to ask questions and all questions were answered to the best of my ability. RTO in 1 year for annual heat treat supervisor exam. This note is constructed using voice recognition software. While every effort has been made to ensure accuracy, oil field pumper errors may have been included. (2) Vulvar pruritus: Code(s): L29.2 - Pruritus vulvae Category: Medical Plan: BV panel obtained. Await results for final plan of care. Reviewed skin care and changes with aging. (3) Vaginal dryness: Code(s): N89.8 - Other specified noninflammatory disorders of vagina Plan Common products for moisturizing and hydrating including Replens moisturizer and lubrication. Role of vaginal estrogens. Plans trial of Replens moisturizer. Orders: Orders MM tomosynthesis screening BI Today Z12.31 - Encounter for screening mammogram for malignant neoplasm of breast Pap Smear Today Z01.419 - Encounter for gynecological examination (general) (routine) without abnormal findings Coding Level of Care Code New Pt Prev Care 40-64y(50692) Diagnoses Encounter for well woman exam with routine gynecological exam Z01.419 Vulvar pruritus L29.2 Vaginal dryness N89.8
--- OUTSIDE RECORDS SUMMARY | 2024-12-23 09:48 | XMS_ITS | Clinical Summary ---
Author Organization [address] Address [address] [place] [phone] Phone Care Team Providers Care Bit Sharpener Operator Name Role Phone Nannette Aguillon MD Primary Care Provider [phone]- [phone] Surgical History Surgery Date Site/Laterality Comments OTHER SURGICAL HISTORY age 19 PROCEDURE: [place] CAUTERY CERVIX CRYOCAUTERY INITIAL/REPEAT; COMMENT: Mild Dysplasia OTHER SURGICAL HISTORY PROCEDURE: ENDOMETRIAL BIOPSY/PIPELLE [facility] PATHOLOGY COLPOSCOPY 12/04/1988 PROCEDURE: [place] COLPOSCOPY ENTIRE VAGINA W/VAGINA/CERVIX BX OTHER SURGICAL HISTORY 02/2015 Right PROCEDURE: [place] EXC PRTD ISAK/PRTD GLND LAT LOBE W/O [...] cervicitis DX:Chronic ce rvicitis Anxiety state, unspecified 07/17/08 DX:An xiety state, unspecified Abnormal glandular Papanicol [...] drink = 0.6 oz pur e alcohol) Comments Unknown Sex and Gender Information Value Date Recorded Sex Assigned at Not on file Legal Sex Female 8:57 PM EST Gender Identity Not on file Sexual Orientation [...] Health Maintenance Due Date Last Done Comments Hepatitis A Vaccines (1 of 2 - Risk 2-dose series) 11/26/1982 Cervical Cancer Screening: HPV 11/26/1984 Pneumococcal Vaccine: 50+ Years (1 of 1 - PCV) 11/26/2013 Zoster Vaccines (1 of 2) 11/26/2013 Cholesterol Screening (Lipid Panel) 04/29/2022 Colorectal Cancer Screening: Colonoscopy 04/29/2022 HIV Screening 04/29/2022 Hepatitis C Screening 04/29/2022 Social Influencers of Health Screening 04/29/2022 DTaP,Tdap,and Td Vaccines (3 - Td or Tdap) 08/06/2022 08/06/2012, 03/21/2011 COVID-19 Vaccine (2 - season) 2024 09/17/2020 Depression Screening 05/21/2024 Breast Cancer Screening 05/23/2024 05/23/19 23, 05/16/2021, 05/11/2020, Additional history exists Influenza Vaccine (#1) 2025 03/17/2020 RSV Immunization Adult Patients (1 - 1-dose 75+ series) 11/26/2038 HIB [...] patient's age to complete this topic Meningococcal B Vaccine Aged Out No l onger eligible based on patient's age to complete this topic RSV Immunization Patients Under 20 months Aged Out No longer eligible based on patient's age to complete this topic Varicella Vaccines Aged Out No longer eligible based on patient's age to complete this topic Procedures Procedure Name Priority Date/Time Associated Diagnosis Comments SCREENING MAMMOGRAPHY BI 2-VIEW BREAST INC CAD Routine 05/23/2022 9:29 AM EST Encounter for screening mammogram for malignant neoplasm of breast from Last 3 Months or Most Recently Relevant to Health Maintenance Results * SCREENING MAMMOGRAPHY BI 2-VIEW BREAST INC [...] interpreted with the aid of computer-aided detection. Comparison is made with 05/16/2021 and as far back as 05/25/2017. Breast parenchyma is composed of scattered fibroglandular densities. No new suspicious mass, architectural distortion, or suspicious calcifications. Impression: No mammographic evidence of malignancy. BI-RADS 1 - negative Procedure Note Christine Maurice MD - 06/25/2023 This is a [...] negative Sammie Rabago MD IMG XR PROCEDURES Final Result from Last 3 Months or Most Recently Relevant to Health Maintenance Care Teams Bit Sharpener Operator Relationship Specialty Start Date End Date Nannette Aguillon MD PCP - General Internal Medicine 02/18/07
== END 2024-12-23 10:43 | disposition home or self-care (01) ==
LOC: HO.HWS 09:27
PROVIDERS: PCP Internal Medicine; Visit Provider Advanced Practice Midwife
DX: Z01.419 Encounter for gynecological examination (general) (routine) without abnormal findings (principal); L29.2 Pruritus vulvae; N89.8 Other specified noninflammatory disorders of vagina
CPT/HCPCS: 99386; 99459

== ENCOUNTER 2024-12-23 09:27 | Outpatient (REF) | payer OTHER, SELFPAY | END 2024-12-23 09:28 | disposition home or self-care (01) | LOC: HO.LNP 09:27 | PROVIDERS: PCP Internal Medicine; Visit Provider Advanced Practice Midwife | DX: Z01.419 Encounter for gynecological examination (general) (routine) without abnormal findings (principal); Z12.31 Encounter for screening mammogram for malignant neoplasm of breast; L29.2 Pruritus vulvae; N89.8 Other specified noninflammatory disorders of vagina; Z79.899 Other long term (current) drug therapy; Z11.51 Encounter for screening for human papillomavirus (HPV) | CPT/HCPCS: 87626; 88175 ==

== ENCOUNTER 2025-04-22 11:54 | Outpatient (REF) | payer OTHER, SELFPAY ==
[2025-04-22 13:58] LABS: MANUAL DIFF FLAG NO
[2025-04-22 14:07] LABS: Hematocrit 38.3 % (37.0-47.0); Hemoglobin 12.7 g/dl (12.0-16.0); Imm Gran Abs Auto 0.01 X10*3/uL (0.00-0.03); Imm Gran Pct Auto 0.2 % (0.0-0.4); Lymphocytes Absolute Auto 2.1 X10*3/uL (1.2-4.9); Mean Corpuscular HGB Conc 33.2 g/dl (31.0-35.0); Mean Corpuscular Hemoglobin 30.8 pg (27.0-33.0); Mean Corpuscular Volume 92.7 fL (80.0-98.0); NRBC Abs Auto 0.000 X10*3/uL (0.0-0.012); NRBC Pct Auto 0.0 /100WBC (0.0-0.2); Platelet Count 315 X10*3/uL (160-400); Red Blood Count 4.13 X10*6/uL (4.20-5.50); White Blood Count 5.1 X10*3/uL (4.8-10.8)
--- OUTSIDE RECORDS SUMMARY | 2025-04-22 14:23 | XMS_ITS | Clinical Summary ---
Author Organization [address] Address [address] [place] [id number] Phone Care Team Providers Care Cushion Installer Name Role Phone Nannette Aguillon MD Primary Care Provider [phone] Surgical History Surgery Date Site/Laterality Comments OTHER SURGICAL HISTORY age 19 PROCEDURE: MI CAUTERY CERVIX CRYOCAUTERY INITIAL/REPEAT; COMMENT: Mild Dysplasia OTHER SURGICAL HISTORY PROCEDURE: ENDOMETRIAL BIOPSY/PIPELLE [facility] PATHOLOGY COLPOSCOPY 12/04/1988 PROCEDURE: MI COLPOSCOPY ENTIRE VAGINA W/VAGINA/CERVIX BX OTHER SURGICAL HISTORY 02/2015 Right PROCEDURE: MI EXC PRTD ISAK/PRTD GLND LAT LOBE W/O [...] Years Used Date Smoking Tobacco: Former Cigarettes 0.3 Q uit: 02/22/2013 Smokeless Tobacco: Former Alcohol [...] Health Maintenance Due Date Last Done Comments Colorectal Cancer Screening: Colonoscopy 1965 Hepatitis A Vaccines (1 of 2 - Risk 2-dose series) 11/26/1982 Pneumococcal Vaccine: 50+ Years (1 of 2 - PCV) 11/26/1982 Cervical Cancer Screening: HPV 11/26/1984 Zoster Vaccines (1 of 2) 11/26/2013 Cholesterol Screening (Lipid Panel) 04/29/2022 HIV Screening 04/29/2022 Hepatitis C Screening 04/29/2022 Social Influencers of Health Screening 04/29/2022 DTaP,Tdap,and Td Vaccines (3 - Td or Tdap) 08/06/2022 08/06/2012, 03/21/2011 Depression Screening 05/21/2024 Breast Cancer Screening 05/23/2024 05/23/19 23, 05/16/2021, 05/11/2020, Additional history exists COVID-19 Vaccine ( - 2024- season) 2025 09/17/2020 Influenza Vaccine (#1) 2025 03/17/2020 RSV Immunization [...] Recently Relevant to Health Maintenance Care Teams Cushion Installer Relationship Specialty Start Date End Date Nannette Aguillon MD PCP - General Internal Medicine 02/18/07
[2025-04-22 15:01] LABS: Alanine Aminotransferase 54 U/L (0-31); Albumin Level 4.5 g/dL (3.5-5.0); Alkaline Phosphatase 92 U/L (39-117); Anion Gap 12 (12-20); Aspartate Amino Transferase 39 U/L (5-31); Blood Urea Nitrogen 14 mg/dL (9-16); Calcium 9.1 mg/dL (8.4-10.2); Carbon Dioxide 26 mmol/L (22-29); Chloride 103 mmol/L (96-108); Cholesterol 186 mg/dL (<200); Estimated Glomerular Filt Rate > 60; HDL Cholesterol 52 mg/dL (>40); Potassium 3.9 mmol/L (3.3-5.1); Sodium 137 mmol/L (135-145); Total Protein 7.3 g/dL (6.5-8.0); Triglycerides 102 mg/dL (<150)
== END 2025-04-22 11:55 | disposition home or self-care (01) ==
LOC: HO.WFDLDS 11:54
PROVIDERS: Visit Provider Internal Medicine
DX: F41.9 Anxiety disorder, unspecified (principal); F33.41 Major depressive disorder, recurrent, in partial remission; E78.2 Mixed hyperlipidemia; R73.02 Impaired glucose tolerance (oral); E03.8 Other specified hypothyroidism; E06.3 Autoimmune thyroiditis
CPT/HCPCS: 36415; 80053; 80061; 83036; 84443; 85025

== ENCOUNTER 2025-04-24 13:08 | Outpatient (AMB) | payer OTHER, SELFPAY ==
[2025-04-24 13:10] VITALS: BP 126/64; PULSE 86; RESP 14; O2SAT 95; BMI 31.4
--- NOTE | 2025-04-24 13:10 | MHC.PC.OV ---
Vital Signs 04/24/25 13:10 Height 5 ft 3 in Weight 177 lb 8 oz BMI 31.4 BP 126/64 Blood Pressure Location Rt brachial Position Sitting Respiration 14 Pulse 86 Pulse Source Pulse Oximeter Pulse Oximetry (%) 95 Oxygen Delivery Method Room Air Intake Visit Reasons: CPE Intake Note: Physical Housing Assistant Property Manager Required: No Allergies No Known Allergies Allergy (Verified 04/24/25 13:12) Tobacco use date assessed: 04/24/25 Dental Screening Dental Screen Date: 04/24/25 Did you have a dental visit in the last 12 months?: Yes Did you have a dental problem in the last 6 months where you did not have access to dental care?: No Was dental information given to patient?: Patient has dentist HPI HPI Comments History of Present Illness Details The patient is a 58 year old female with a past medical history of hypothyroid, hyperlipidemia, anxiety, prediabetes, osteopenia & depression presenting for CPE CV: on lipitor daily. Denies chest pain, shortness of breath Depression/Anxiety: On prn ativan and fluoxetine-40mg daily Hypothyroid: stable on levothyroxine. Recent TSH elevated. Increased 3 weeks ago to 88mcg MSK: h/o bilateral wrist hand pain, CMC joints. Saw ortho. Increased low back pain. Macromastia. Getting recurrent rash under the breast despite topical therapy. She has been doing PT stretches at home for the low back which continues to bother her despite this. Fell on right knee 2 weeks ago, has a swelling. Right breast pain x years. screening mammos have been normal. Some axillary fullness with palpable right axillary node GI: Follows with [facility] Preventive Colonoscopy 01/21/2021-due 5 years-Dr Caldera requests referral Mammo -May 2024 DXA-Mar 2024-osteopenia Follows with print color matcher [facility] ROS see HPI PHYSICAL EXAM: GENERAL: Alert and oriented x 3. NAD EYES: EOMI. Anicteric. HENT: Moist mucous membranes. No scleral icterus. No cervical lymphadenopathy. LUNGS: Clear to auscultation bilaterally. BREAST: Right axillary fullness with palpable right axillary node CARDIOVASCULAR: Regular rate and rhythm. soft murmur. No JVD. ABDOMEN: Soft, non-tender +bs EXTREMITIES: No edema. Non-tender. SKIN: Erythema with bumps in between and under the breasts NEUROLOGIC: No focal neurological deficits. CN II-XII grossly intact PSYCHIATRIC: Cooperative. Appropriate mood and affect [facility] Surgical History No pertinent past surgical history Family History Mother Dementia Father Oral cancer Social History Housing: House Alcohol intake: current Alcohol intake frequency: a few times a week Alcohol type: wine Patient Tobacco Use Status: Never used Tobacco e-Cigarette/Vaping Use: Never Used service: No Current occupational status: retired Cognitive needs: No Hearing needs: No Vision needs: Yes Questionnaire PHQ-9 Over the last 2 weeks, how often have you been bothered by any of the following problems? 1. Little interest or pleasure in doing things: several days 2. Feeling down, depressed, or hopeless: several days 3. Trouble falling or staying asleep, or sleeping too much: several days 4. Feeling tired or having little energy: several days 5. Poor appetite or overeating: several days 6. Feeling bad about yourself - or that you are a failure or have let yourself or your family down: several days 7. Trouble concentrating on things, such as reading the newspaper or watching television: several days 8. Moving or speaking so slowly that other people could have noticed. Or the opposite - being so fidgety or restless that you have been moving around a lot more than usual: several days 9. Thoughts that you would be better off or of hurting yourself in some way: several days Total score: 9 Depression Screening Interpretation: Positive Depression Screening Follow-up: Existing condition Depression Screening Done: Yes 90030 - PHQ-9 Billing: Yes Source: Developed by Drs. Armando Lazaro, Lynette Matias, Get Burroughs and colleagues, with an educational miguel from [employer]. Thrive Questionnaire Date Thrive assessed: 04/24/25 I am a: Patient What is your living situation today?: I have a steady place to live Within the past 12 months, did the food you bought not last and you didn't have the money to get more?: Never true Within the past 12 months, did you worry whether your food would run out before you got money to buy more?: Never true Do you have trouble paying for medicines?: I choose not to answer this question Do you have trouble getting transportation to medical appointments?: No Do you have trouble paying your heating and electricity bill?: No Do you have trouble taking care of your child, family member or friend?: No Do you have trouble with day-to-day activities such as bathing, preparing meals, shopping, managing finances, etc.?: No Are you currently unemployed and looking for a job?: No Are you interested in more education?: No Please select the resources that you would like help with: None Currently or been in a relationship where the following occur: No concerns reported THRIVE Score: 0 AUDIT C Alcohol Use Questionnaire (AUDIT-C) 1. How often do you have a drink containing alcohol?: 2-4 times a month 2. How many drinks containing alcohol do you have on a typical day when you are drinking?: 1 or 2 3. How often do you have six or more drinks on one occasion?: Never Total Score: 2 ROSE-7 AMB Questionnaire ROSE-7 Date ROSE - 7 assessed: 04/24/25 Feeling nervous, anxious, or on edge: 1 = Several days Not being able to stop or control worryin = Several days Worrying too much about different things: 1 = Several days Trouble relaxin = Several days Being so restless that it is hard to sit still: 1 = Several days Becoming easily annoyed or irritable: 1 = Several days Feeling afraid as if something awful might happen: 1 = Several days Total ROSE-7 score (0-4 normal; 5-9 mild; 10-14 moderate; 15-21 severe): 7 Source: Developed by Drs. Armando Lazaro, Lynette Matias, Get Burroughs and colleagues, with an educational miguel from [employer]. ROSE-7 Assessment Billing ROSE-7 Assessment Tool: ROSE-7 Assessment 44915 Physical exam (Primary Care) Vital Signs: Last Vital Signs Pulse 86 04/24/25 13:10 Resp 14 04/24/25 13:10 BP 126/64 04/24/25 13:10 Pulse Ox 95 04/24/25 13:10 Oxygen Delivery Method Room Air 04/24/25 13:10 BMI result Body Mass Index 31.4 Tobacco/Smoking Status: Tobacco use Status Tobacco use date assessed 04/24/25 04/24/25 13:15 Patient Tobacco Use Status Never used Tobacco 04/24/25 13:18 e-Cigarette/Vaping Use Never Used 04/24/25 13:18 PHQ-9: PHQ-9 Score PHQ-9: Total score 9 04/24/25 13:19 Depression Screening Interpretation: Positive Depression Screening Follow-up: Existing condition Thrive Assessment: Date of Thrive Assessment Date Thrive assessed 04/24/25 04/24/25 13:19 Currently or been in a relationship where the following occur: No concerns reported Coding Level of Care Code Est Pt Prev Care 40-64y(66661) Diagnoses Physical exam Z00.00 Breast pain, right N64.4 Impaired glucose tolerance R73.02 Heart murmur R01.1 Recurrent major depressive disorder, in partial remission F33.41 Depression Type: major depressive disorder Major depression recurrence: recurrent Active/Remission status: in partial remission Additional Codes ROSE-7 Assessment Billing - ROSE-7 Assessment Tool: ROSE-7 Assessment [id number] ([id number]) PHQ-9 - 04518 - PHQ-9 Billing: Yes ([id number]) Assessment & Plan Assessment & Plan (1) Physical exam: Code(s): Z00.00 - Encounter for general adult medical examination without abnormal findings Category: Medical (2) Breast pain, right: Code(s): N64.4 - Mastodynia Category: Medical (3) Impaired glucose tolerance: Comment: Check labs. Efforts toward weight loss Code(s): R73.02 - Impaired glucose tolerance (oral) Category: Medical (4) Heart murmur: Code(s): R01.1 - Cardiac murmur, unspecified Category: Medical (5) Depression: Code(s): F32.A - Depression, unspecified Category: Medical Qualifiers: Depression Type: major depressive disorder Major depression recurrence: recurrent Active/Remission status: in partial remission Qualified Code(s): F33.41 - Major depressive disorder, recurrent, in partial remission Plan CPE Interval history reviewed Depression/anxiety -stable Hypothyroid-clinically and biochemically euthyroid on levothyroxine Right breast pain, axilla LN-diagnostic mammo and us ordered GI referral for endoscopy Heart murmur-echo ordered Orders: Orders US breast RT limited Today L02.411 - Cutaneous abscess of right axilla, N64.4 - Mastodynia CA echo transthoracic complete Today R01.1 - Cardiac murmur, unspecified MM tomosynthesis diagnostic RT Today N64.4 - Mastodynia Referrals Gastroenterology Referral Z12.11 - Encounter for screening for malignant neoplasm of colon Medications: [place]imangopilar (semaglutide (weight loss)) administer weeks 1 through 4 of therapy 0.25 mg (0.5 mL) subcut QWEEK 2 mL 1RF NS E66.811 - Obesity, class 1, E78.2 - Mixed hyperlipidemia, R73.02 - Impaired glucose tolerance (oral) [id number]-[id number]-[id number] 3.5-10,000-1 mg/mL-unit/mL-% 4 drps otic (ear) left Q8H 10 mL 1RF 5 days Refilled lorazepam 0.5 mg PO DAILY 90 tabs 3RF 90 days
== END 2025-04-24 13:52 | disposition home or self-care (01) ==
LOC: HO.HMCFM 13:09
PROVIDERS: PCP Internal Medicine; Visit Provider Internal Medicine
DX: Z00.00 Encounter for general adult medical examination without abnormal findings (principal); N64.4 Mastodynia; R73.02 Impaired glucose tolerance (oral); R01.1 Cardiac murmur, unspecified; F33.41 Major depressive disorder, recurrent, in partial remission

== ENCOUNTER → 2025-04-24 13:08 | Outpatient (BNVA) | payer OTHER, SELFPAY | PROVIDERS: PCP Internal Medicine; Visit Provider Internal Medicine | DX: Z13.31 Encounter for screening for depression (principal); Z13.39 Encounter for screening examination for other mental health and behavioral disorders | CPT/HCPCS: 96127 ==